=== PATIENT | female | born 1965 | race Caucasian/White ===

== ENCOUNTER 2024-07-04 01:17 | Emergency (ER) | payer BC, SELFPAY ==
[2024-07-04 01:28] VITALS: BP 144/98; PULSE 65; RESP 18; TEMP 36.7; O2SAT 97; BMI 30.3
[2024-07-04 02:11] LABS: Bacteria Urine 2+ /hpf; Hyaline Casts Urine 2.87 /lpf; RBC Urine 51-100 /hpf (0-2); Squamous Epithelial Cell Urine 21-50 /hpf (0-5); Universal Test for UA Present (0)
--- NOTE | 2024-07-04 02:12 | CTR_ITS ---
PROCEDURE INFORMATION: Exam: CT Abdomen And Pelvis With Contrast Exam date and time: 07/04/2024 2:36 AM Age: 58 years old Clinical indication: Abdominal pain; Localized; Right; Prior surgery; Surgery date: 6+ months; Surgery type: Hysterectomy; C/O RT sided abd pain. ; Additional info: Rlq pain TECHNIQUE: Imaging protocol: Computed tomography of the abdomen and pelvis with contrast. Radiation optimization: All CT scans at this facility use at least one of these dose optimization techniques: automated exposure control; mA and/or kV adjustment per patient size (includes targeted exams where dose is matched to clinical indication); or iterative reconstruction. Contrast material: OMNI 350; Contrast volume: 100 ml; Contrast route: INTRAVENOUS (IV); COMPARISON: No relevant prior studies available. RADIATION DOSE METRICS: Total DLP (mGy-cm): 361.83 FINDINGS: Diaphragm: Small hiatal hernia. Liver: Diffuse hepatic hypoattenuation. Gallbladder and biliary ducts: Normal. No calcified stones. No ductal dilation. Pancreas: Normal. No ductal dilation. Spleen: Normal. No splenomegaly. Adrenal glands: Normal. No mass. Kidneys and ureters: Moderate right hydronephrosis secondary to a 9 x 10 x 5 mm UPJ stone and a 4 x 3 x 6 mm stone just caudal to it within the proximal ureter. Multiple bilateral nonobstructing renal calculi measuring up to a proximally 6 mm on the right. Right perinephric fat stranding. Stomach and bowel: Unremarkable. No obstruction. No mucosal thickening. Appendix: No evidence of appendicitis. Intraperitoneal space: Unremarkable. No free air. No significant fluid collection. Vasculature: Unremarkable. No abdominal aortic aneurysm. Lymph nodes: Unremarkable. No enlarged lymph nodes. Urinary bladder: Unremarkable as visualized. Reproductive: Uterus is surgically absent. No evidence of adnexal mass. Bones/joints: Unremarkable. No acute fracture. Soft tissues: Unremarkable. CT/CT abdomen pelvis w con* [id number] IMPRESSION: 1. Moderate right hydronephrosis secondary to a 9 x 10 x 5 mm UPJ stone and a 4 x 3 x 6 mm stone just caudal to it within the proximal ureter. 2. Multiple bilateral nonobstructing renal calculi measuring up to a proximally 6 mm on the right. 3. Hepatic steatosis. 4. Small hiatal hernia.
--- NOTE | 2024-07-04 02:13 | W.ED.ABDPA2 ---
HPI - Abdominal Pain General: Chief Complaint: Abdominal Pain Stated Complaint: ABD Pain Time Seen by Provider: 07/04/24 01:53 History of Present Illness: 58-year-old female with a history of right lower quadrant pain starting around 6 PM last evening. She states the pain is progressed and continued to get worse. She has vomited a couple of times. No fever. She had some dysuria last week, but this had resolved. No dysuria currently. No change in her urine. Her only surgical history is that of a hysterectomy years ago. She has not had pain like this before. Related Data Previous Rx's ?Medication ?Instructions ?Recorded ondansetron 4 mg disintegrating 4 mg PO Q6H PRN nausea and 07/04/24 tablet vomiting #14 tabs oxycodone-acetaminophen 7.5 mg-325 1 tab PO Q6H PRN pain #10 tabs 07/04/24 mg tablet (Percocet) tamsulosin 0.4 mg capsule (Flomax) 0.4 mg PO DAILY #10 caps 07/04/24 Allergies Allergy/AdvReac Type Severity Reaction Status Date / Time acetazolamide (From Diamox Allergy ALGY-Hives Verified 07/04/24 01:36 Sequels) gatifloxacin (From Tequin) Allergy ALGY-Hives Verified 07/04/24 01:36 metoclopramide (From Reglan) Allergy ALGY-Anaphy Verified 07/04/24 01:35 laxis prochlorperazine (From Allergy ALGY-Anaphy Verified 07/04/24 01:35 Compazine) laxis Physical Exam Const: GENERAL APPEARANCE: cooperative and ill appearing (Mildly); not frail appearing HENMT: COMMON NORMALS: normocephalic, atraumatic and Normal external nose present HEAD & SCALP: normocephalic and atraumatic FACE & SINUS: normal facial exam and face symmetric NOSE: Normal external nose present Eye: COMMON NORMALS: Equal, round and reactive pupils present and EOMs intact bilaterally PUPIL: Yes Equal, round and reactive pupils present Neck/C-Spine: GENERAL: Yes trachea midline Chest: CHEST: Yes Symmetrical chest wall rise Resp: COMMON NORMALS: normal respiratory effort, No retractions, No use of accessory muscles and clear to auscultation bilaterally AUSCULTATION: clear to auscultation bilaterally Cardio: COMMON NORMALS: regular rate and regular rhythm RATE: regular rate RHYTHM: regular rhythm GI: COMMON NORMALS: Soft to palpation PALPATION: Yes Soft to palpation and Yes Tenderness to palpation present (GI) Details: RLQ : BLADDER/KIDNEY EXAM: Yes CVA tenderness on the right Back/Pelvis: GENERAL BACK: Yes CVA tenderness Extremity: COMMON NORMALS: no pedal edema Neuro: BHASKAR COMA SCALE: document GCS findings [place] coma scale eye opening: Spontaneous Bhaskar coma scale verbal response: Orientated [place] coma scale motor response: Obey commands [place] coma scale total score: 15 SENSORY EXAM: Yes extremities (intact) Psych: COMMON NORMALS: speech normal SPEECH: Yes normal speech Skin: COMMON NORMALS: no rashes or lesions noted GENERAL SKIN EXAM: no rashes or lesions noted Course Vital Signs: Vital signs: Vital Signs Temperature 98.1 F 07/04/24 01:28 Pulse Rate 74 07/04/24 02:28 Respiratory Rate 20 H 07/04/24 02:25 Blood Pressure 152/114 07/04/24 02:28 Pulse Oximetry 98 07/04/24 02:28 Oxygen Delivery Me thod Room Air 07/04/24 01:28 MDM - Abdominal Pain Medical Decision Making White blood cell count mildly elevated. Bicarbonate is 17. CT scan shows large ureteral lithiasis, with a 9 x 10 x 5 mm stone and a 4 x 3 x 6 mm stone in the proximal right ureter. Urinalysis does not show infection. She is not running a fever. She has not vomited currently. Pain is controlled currently. Stones will likely require intervention, we do not have urology at this facility. She will be allowed discharge on pain medication, antiemetic, and Flomax. She is encouraged to call urology later this morning for follow-up appointment. She knows to return for worsening symptoms despite treatment. Lab Data 07/04/24 02:25 07/04/24 02:25 Labs/Radiology: Radiology Impressions Abdomen/Pelvis CT 07/04/24 02:12 IMPRESSION: 1. Moderate right hydronephrosis secondary to a 9 x 10 x 5 mm UPJ stone and a 4 x 3 x 6 mm stone just caudal to it within the proximal ureter. 2. Multiple bilateral nonobstructing renal calculi measuring up to a proximally 6 mm on the right. 3. Hepatic steatosis. 4. Small hiatal hernia. Laboratory Results WBC 12.82 10^3/uL (3.29-11.43) H 07/04/24 02:25 RBC 4.50 10^6/uL (3.85-5.65) 07/04/24 02:25 Hgb 14.00 g/dL (11.27-16.99) 07/04/24 02:25 Hct 44.1 % (36-47) 07/04/24 02:25 MCV 98.0 fl (85-98) 07/04/24 02:25 MCH 31.1 pg (27-33) 07/04/24 02:25 MCHC 31.7 g/dL (30-55) 07/04/24 02:25 RDW 12.8 % (12.1-15.1) 07/04/24 02:25 Plt Count 285 10^3/cmm (157-399) 07/04/24 02:25 MPV 10.0 fL (7.4-10.4) 07/04/24 02:25 Neut % (Auto) 84.9 % 07/04/24 02:25 Lymph % (Auto) 10.7 % 07/04/24 02:25 [place] % (Auto) 3.7 % 07/04/24 02:25 Eos % (Auto) 0.1 % 07/04/24 02:25 Baso % (Auto) 0.3 % 07/04/24 02:25 Neut # (Auto) 10.89 10^3/uL (1.8-7.7) H 07/04/24 02:25 Lymph # (Auto) 1.4 10^3/uL (0.8-4.8) 07/04/24 02:25 [place] # (Auto) 0.5 10^3/uL (0.2-0.9) 07/04/24 02:25 Eos # (Auto) 0.0 10^3/uL (0.0-0.8) 07/04/24 02:25 Baso # (Auto) 0.0 10^3/uL (0.0-0.1) 07/04/24 02:25 Nucleated RBC % (auto) 0 % 07/04/24 02:25 Nucleated RBCs # 0.0 /100WBC 07/04/24 02:25 Sodium 138 mmol/L (136-145) 07/04/24 02:25 Potassium 4.1 mmol/L (3.5-5.1) 07/04/24 02:25 Chloride 106 mmol/L (98-107) 07/04/24 02:25 Carbon Dioxide 17 mmol/L (22-29) L 07/04/24 02:25 Anion Gap 19.1 (5-19) H 07/04/24 02:25 BUN 14 mg/dL (8-23) 07/04/24 02:25 Creatinine 0.9 mg/dL (0.5-0.9) 07/04/24 02:25 GFR Calculation 63.9 mL/min (90-130) L 07/04/24 02:25 Glucose 161 mg/dL (65-115) H 07/04/24 02:25 Calculated Osmolality 290 mOsm/kg (285-295) 07/04/24 02:25 Calcium 9.5 mg/dL (8.5-10.5) 07/04/24 02:25 Total Bilirubin 0.2 mg/dL (0.15-1.2) 07/04/24 02:25 AST 17 U/L (0-32) 07/04/24 02:25 ALT 21 U/L (0-33) 07/04/24 02:25 Alkaline Phosphatase 116 U/L (35-105) H 07/04/24 02:25 C-Reactive Protein 3.0 mg/L (0.0-4.9) 07/04/24 02:25 Total Protein 7.8 g/dL (6.6-8.7) 07/04/24 02:25 Albumin 4.5 g/dL (3.5-5.2) 07/04/24 02:25 Globulin 3.3 g/dL (1.3-4.6) 07/04/24 02:25 Lipase 22 U/L (13-60) 07/04/24 02:25 Urine Color Yellow (Yellow) 07/04/24 01:35 Urine Appearance Slightly cloudy (CLEAR) 07/04/24 01:35 Urine pH 8 (5-7) A 07/04/24 01:35 Ur Specific White 1.010 (1.005-1.030) 07/04/24 01:35 Urine Protein Neg (Negative) 07/04/24 01:35 Urine Glucose (UA) Norm (Normal) 07/04/24 01:35 Urine Ketones 1+ (Negative) H 07/04/24 01:35 Urine Blood 3+ (Negative) A 07/04/24 01:35 Urine Nitrate Negative (Negative) 07/04/24 01:35 Urine Bilirubin Neg (Negative) 07/04/24 01:35 Urine Urobilinogen Norm mg/dL (Negative) 07/04/24 01:35 Ur Leukocyte Esterase Negative (Negative) 07/04/24 01:35 Urine RBC 51-100 /hpf (0-2) H 07/04/24 01:35 Urine WBC 11-20 /hpf (0-5) H 07/04/24 01:35 Ur Squamous Epith Cells 21-50 /hpf (0-5) H 07/04/24 01:35 Amorphous Sediment Not Reportable 07/04/24 01:35 Urine Bacteria 2+ /hpf (NONE) H 07/04/24 01:35 Hyaline Casts 2.87 /lpf 07/04/24 01:35 All radiology interpretation(s) finalized by discharge Discharge Plan Discharge Patient Disposition: Home Clinical Impression: Ureterolithiasis Condition: Stable Prescriptions: New oxycodone-acetaminophen [Percocet] 7.5-325 mg tablet 1 tab PO Q6H PRN (Reason: pain) Qty: 10 0RF ondansetron 4 mg tablet,disintegrating 4 mg PO Q6H PRN (Reason: nausea and vomiting) Qty: 14 0RF tamsulosin [Flomax] 0.4 mg capsule 0.4 mg PO DAILY Qty: 10 0RF Discharge Orders: Discharge ED (Routine); Ordered 07/04/24 Ordered By: Tom Snyder Referrals: Enoch Rhodes [Referring] - 1-3 days Patient Instructions: Kidney Stones (ED), Opioid Safety, Pain Management Activity Restrictions/Additional Instructions: Call urology later this morning. Let them know you were seen here, and have an 8 mm kidney stone. Medication as directed. Stay hydrated. Return for fever greater than 100, vomiting liquids, worsening pain despite treatment, any other concerning symptoms. Print Language: [place] Coding Level of Care Code ED [employer] for Deisy Bojorquez
[2024-07-04 02:23] LABS: Urine Color Yellow (Yellow)
[2024-07-04] MEDS: ondansetron 2 mg/ML SDV 2 mL 4 MG IVP (02:23)
[2024-07-04 02:24] LABS: Add Urine Culture? No; Bilirubin Urine Neg (Negative); Blood Urine 3+ (Negative); Glucose Urine UA Norm (Normal); Ketones Urine 1+ (Negative); Leukocyte Esterase Urine Negative (Negative); Nitrate Urine Negative (Negative); Protein Urine Neg (Negative); Urine Appearance Slightly Cloudy (CLEAR); Urobilinogen Urine Norm (Negative); pH Urine 8 (5-7)
[2024-07-04] MEDS: ketorolac 30 mg/mL INJ IVP (02:24)
[2024-07-04 02:25] VITALS: RESP 20; O2SAT 98
[2024-07-04] MEDS: morphine 4 mg/mL SDV 1 mL IVP (02:25)
[2024-07-04 02:28] VITALS: BP 152/114; PULSE 74; O2SAT 98
[2024-07-04 02:34] LABS: Basophils % 0.3 %; Eosinophils % 0.1 %; Hematocrit 44.1 % (36-47); Lymphocytes # 1.4 10^3/uL (0.8-4.8); Lymphocytes % 10.7 %; Mean Corpuscular HGB Conc 31.7 g/dL (30-55); Mean Corpuscular Hemoglobin 31.1 pg (27-33); Monocytes # 0.5 10^3/uL (0.2-0.9); Monocytes % 3.7 %; Neutrophils # 10.89 10^3/uL (1.8-7.7); Neutrophils % 84.9 %; Nucleated Red Blood Cells % 0 %; Platelet Count 285 10^3/cmm (157-399); Red Cell Distribution Width 12.8 % (12.1-15.1); White Blood Count 12.82 10^3/uL (3.29-11.43)
[2024-07-04] MEDS: iohexol 350 mg/mL 500 mL Btl (per mL) IV (02:36)
[2024-07-04 02:53] LABS: Alanine Aminotransferase 21 U/L (0-33); Albumin Level 4.5 g/dL (3.5-5.2); Alkaline Phosphatase 116 U/L (35-105); Anion Gap 19.1 (5-19); Aspartate Amino Transferase 17 U/L (0-32); Blood Urea Nitrogen 14 mg/dL (8-23); Calcium 9.5 mg/dL (8.5-10.5); Carbon Dioxide 17 mmol/L (22-29); Chloride 106 mmol/L (98-107); Creatinine Clr Calc Pharmacy 63.1502; Globulin 3.3 g/dL (1.3-4.6); Glomerular Filtration Rate 63.9 mL/min (90-130); Glucose 161 mg/dL (65-115); Lipase 22 U/L (13-60); Osmolality Calculated 290 mOsm/kg (285-295); Potassium 4.1 mmol/L (3.5-5.1); Sodium 138 mmol/L (136-145); Total Bilirubin 0.2 mg/dL (0.15-1.2); Total Protein 7.8 g/dL (6.6-8.7)
[2024-07-04] MEDS: tamsulosin 0.4 mg Capsule 0.8 MG PO (03:44)
[2024-07-04] MEDS: oxyCODONE-APAP 5-325 mg Tablet 2 TAB PO (03:48)
[2024-07-04] MEDS: ondansetron 4 MG Tablet 8 MG PO (03:48)
[2024-07-04 03:57] VITALS: BP 152/84; PULSE 78; O2SAT 95
--- NOTE | 2024-07-04 03:59 | PC.NURSE ---
Zofran and oxycodone 2 tabs each sent home with pt per MD Snyder. Medication log filled out.
== END 2024-07-04 03:55 | disposition home or self-care (01) ==
PROVIDERS: Emergency Provider Emergency Medicine
DX: N20.1 Calculus of ureter (principal)
CPT/HCPCS: 74177; 80053; 81001; 83690; 85025; 86140; 96374; 96375; 99285; J1885; J2270; J2405; J9999; Q0162